=== PATIENT | male | born 1950 | race Caucasian/White ===

== ENCOUNTER 2021-10-13 17:26 | Emergency (ER) | payer MEDICARE, SELFPAY ==
[2021-10-13 17:34] VITALS: BP 151/90; PULSE 92; RESP 20; TEMP 37.1; O2SAT 92; BMI 32.6
--- NOTE | 2021-10-13 18:08 | ED_ITS ---
Documented by User: VIRGINIA Swan 10/13/21 22:18 HPI - COVID General: Chief Complaint: COVID symptoms Stated Complaint: COVID + Chest Pains Time Seen by Provider: 10/13/21 18:08 Triage information: Has fever, cough or shortness of breath . Exposure to COVID + person last 14 days History of Present Illness: 71-year-old male patient comes in today with complaints of increasing shortness of breath over the last 2 days. Patient has been ill for about 2 weeks. Patient was seen 2 days ago at [facility] and was treated with IV medications and then released to home. Patient reports no improvement in symptoms and come into the ER due to worsening condition. Patient is positive for COVID-19. Patient reports his brother about 4 months ago from COVID-19. Patient does have diabetes mellitus and reports poor control of blood sugar since illness. Patient does report some chest discomfort. Patient appears unwell but not toxic. Patient's oxygen saturation decreases with speech. COVID 19 common symptoms: positive dyspnea COVID 19 other sytmptoms: positive chest pain COVID Results: No Data to Display Review of Systems General: Reports: 10 or more systems reviewed and unremarkable except in HPI and below Card: Reports: chest pain Resp: Reports: dyspnea Physical Exam Const: COMMON NORMALS: alert HENMT: COMMON NORMALS: normocephalic and TM's normal bilaterally HEAD & SCALP: normocephalic TYMPANIC MEMBRANE: TM's normal bilaterally MOUTH: moist mucous membranes abnormal (Thrush) THROAT: posterior oropharynx normal Resp: EFFORT & INSPECTION: Yes tachypneic AUSCULTATION: diminished lung sounds Cardio: COMMON NORMALS: regular rate and regular rhythm RATE: regular rate RHYTHM: regular rhythm GI: COMMON NORMALS: Soft to palpation and non-tender PALPATION: Yes Soft to palpation Extremity: COMMON NORMALS: normal to inspection and no pedal edema Neuro: SENSORIUM/ORIENTATION: Yes alert Psych: COMMON NORMALS: cooperative Skin: COMMON NORMALS: no rashes or lesions noted GENERAL SKIN EXAM: no rashes or lesions noted Course ED course: 2144, reviewed records from [facility], patient had been infused with a dose of monoclonal antibody, sotromivab , while in the emergency room. Vital Signs: Vital signs: Vital Signs Temperature 98.8 F 10/13/21 17:34 Pulse Rate 73 10/13/21 21:50 Respiratory Rate 18 10/13/21 21:50 Blood Pressure 180/90 10/13/21 21:50 Pulse Oximetry 96 10/13/21 21:50 [facility] - COVID Medical Decision Making 71-year-old male patient comes in today with complaints of shortness of breath and Covid pneumonia. Patient reports worsening shortness of breath over the last 2 to 3 days. Patient was seen 3 days ago at [facility] and was treated with monoclonal antibodies and IV fluids. Patient came in today due to persistent symptoms. On exam patient has decreased breath sounds. Skin is warm and dry. Oral mucosa is has a white film to it suggestive of thrush. Differential diagnosis includes respiratory failure, hypoxia, viral pneumonia, PE. CBC and CMP were notable for a creatinine of 1.3, glucose of 213, and white blood cell count 11.3. Patient was placed on oxygen due to hypoxia of room pulse oxygen saturation ranging between 86 and 92%. Oxygen saturation dropped with activity. Chest x-ray noted bilateral atypical pneumonia. D-dimer was positive at 1.7. CTA of the chest did not indicate any pulmonary embolism. Patient felt better with oxygen and wished to go home. We have made arrangement for home oxygen therapy. Patient was also written a prescription for nystatin swish and swallow for thrush. Patient was also given a inhaler to use 2 puffs every 4 hours as needed for shortness of breath. Lab Data : 10/13/21 19:06 10/13/21 19:06 Radiology Impressions Chest X-Ray 10/13/21 18:09 IMPRESSION: Peripheral airspace opacities predominantly right lung consistent with atypical pneumonia such as COVID-19 infection. Chest CTA 10/13/21 20:06 IMPRESSION: 1. Negative for pulmonary embolism. 2. Patchy peripheral airspace disease in both lungs. 3. Commonly reported imaging features of COVID-19 pneumonia are present. Other processes such as influenza pneumonia and organizing pneumonia, as can be seen with drug toxicity and connective tissue disease, can cause a similar imaging pattern. (Reference: Felipe) REFERENCES: Felipe Elam et al., Radiological Society of [place] Expert Consensus Statement on Reporting Chest CT Findings Related to COVID-19. Endorsed by the Society of Thoracic Radiology, the [place] [employer], and RSNA. Published November 03, 2019. Laboratory Results WBC 11.3 10^3/uL (4.0-10.0) H 10/13/21 19:06 RBC 5.59 10^6/uL (4.1-5.3) H 10/13/21 19:06 Hgb 15.2 g/dL (11.7-16.6) 10/13/21 19:06 Hct 48.0 % (42.0-52.0) 10/13/21 19:06 MCV 85.9 fl (80-94) 10/13/21 19:06 MCH 27.2 pg (28.0-34.0) L 10/13/21 19:06 MCHC 31.7 g/dL (30.0-36.0) 10/13/21 19:06 RDW 14.2 % (12.1-15.1) 10/13/21 19:06 Plt Count 279 10^3/cmm (130-400) 10/13/21 19:06 MPV 9.8 fL (7.4-10.4) 10/13/21 19:06 Neut % (Auto) 76.7 % 10/13/21 19:06 Lymph % (Auto) 13.9 % 10/13/21 19:06 [place] % (Auto) 8.2 % 10/13/21 19:06 Eos % (Auto) 0.5 % 10/13/21 19:06 Baso % (Auto) 0.2 % 10/13/21 19:06 Neut # (Auto) 8.63 10^3/uL (1.8-7.7) H 10/13/21 19:06 Lymph # (Auto) 1.6 10^3/uL (0.8-4.8) 10/13/21 19:06 [place] # (Auto) 0.9 10^3/uL (0.2-0.9) 10/13/21 19:06 Eos # (Auto) 0.1 10^3/uL (0.0-0.8) 10/13/21 19:06 Baso # (Auto) 0.0 10^3/uL (0.0-0.1) 10/13/21 19:06 Nucleated RBC % (auto) 0 % 10/13/21 19:06 Nucleated RBCs # 0.0 /100WBC 10/13/21 19:06 D-Dimer 1.76 ug/mIFEU (0-0.59) H 10/13/21 19:06 Sodium 138 mmol/L (136-145) 10/13/21 19:06 Potassium 3.8 mmol/L (3.5-5.1) 10/13/21 19:06 Chloride 103 mmol/L (98-107) 10/13/21 19:06 Carbon Dioxide 18 mmol/L (22-29) L 10/13/21 19:06 Anion Gap 20.8 (5-19) H 10/13/21 19:06 BUN 17 mg/dL (8-23) 10/13/21 19:06 Creatinine 1.3 mg/dL (0.7-1.2) H 10/13/21 19:06 GFR Calculation Not Reportable 10/13/21 19:06 Glucose 213 mg/dL (65-115) H 10/13/21 19:06 Calculated Osmolality 294 mOsm/kg (285-295) 10/13/21 19:06 Lactic Acid 1.6 mmol/L (0.5-2.2) 10/13/21 19:06 Calcium 9.4 mg/dL (8.5-10.5) 10/13/21 19:06 Total Bilirubin 0.5 mg/dL (0.15-1.2) 10/13/21 19:06 AST 34 U/L (0-40) 10/13/21 19:06 ALT 25 U/L (0-41) 10/13/21 19:06 Alkaline Phosphatase 108 IU/L (40-130) 10/13/21 19:06 Troponin T Gen 5 ng/L 13 ng/L (0-15) 10/13/21 19:06 Total Protein 7.4 g/dL (6.6-8.7) 10/13/21 19:06 Albumin 3.8 g/dL (3.5-5.2) 10/13/21 19:06 Globulin 3.6 g/dL (1.3-4.6) 10/13/21 19:06 No Data to Display EKG Data EKG 1: EKG interpretation date: 10/13/21 EKG interpretation time: 19:37 Interpretation: EKG shows a sinus rhythm with a regular rate at [address] elevation or ectopy is noted. No prior exam is available for comparison. Discharge Plan Discharge Patient Disposition: Home Clinical Impression: Pneumonia due to 2019 novel coronavirus, Candidiasis of mouth Condition: Stable Prescriptions: New nystatin 100,000 unit/mL suspension 4 ml buccal 5XD 7 Days Qty: 140 0RF Rx Instructions: swish and swallow Discharge Orders: Discharge ED (Routine); Ordered 10/13/21 Ordered By: Martin Angel Other Ambulatory Orders: DME: Oxygen (Order) Location: None Selected Ordered By: Martin Angel Patient Instructions: Viral Pneumonia (ED) Activity Restrictions/Additional Instructions: Use oxygen until he can breathe easily without. Drink plenty of water and fluids. Use nystatin suspension 5 times a day. Make sure to coat the entire mouth with the dose either by swishing or directly applying it. Use albuterol inhaler 2 puffs every 4 hours as needed for shortness of breath, wheezing. Return to the ER for worsening symptoms or chest pain. Follow-up with primary care in 2 to 3 days for recheck. Coding Level of Care Code ED Venetian Blind Mechanic for Chg Fwd Exam Comprehensive Documented by User: Cresencio Morrison DO 10/13/21 23:05 HPI - COVID General: Chief Complaint: COVID symptoms Stated Complaint: COVID + Chest Pains Time Seen by Provider: 10/13/21 18:08 COVID Results: No Data to Display Course Vital Signs: Vital signs: Vital Signs Temperature 98.8 F 10/13/21 17:34 Pulse Rate 73 10/13/21 21:50 Respiratory Rate 18 10/13/21 21:50 Blood Pressure 180/90 10/13/21 21:50 Pulse Oximetry 96 10/13/21 21:50 MDM - COVID Medical Decision Making 71-year-old male patient comes in today with complaints of shortness of breath and Covid pneumonia. Patient reports worsening shortness of breath over the last 2 to 3 days. Patient was seen 3 days ago at [facility] and was treated with monoclonal antibodies and IV fluids. Patient came in today due to persistent symptoms. On exam patient has decreased breath sounds. Skin is warm and dry. Oral mucosa is has a white film to it suggestive of thrush. Differential diagnosis includes respiratory failure, hypoxia, viral pneumonia, PE. CBC and CMP were notable for a creatinine of 1.3, glucose of 213, and white blood cell count 11.3. Patient was placed on oxygen due to hypoxia of room pulse oxygen saturation ranging between 86 and 92%. Oxygen saturation dropped with activity. Chest x-ray noted bilateral atypical pneumonia. D-dimer was positive at 1.7. CTA of the chest did not indicate any pulmonary embolism. Patient felt better with oxygen and wished to go home. We have made arrangement for home oxygen therapy. Patient was also written a prescription for nystatin swish and swallow for thrush. Patient was also given a inhaler to use 2 puffs every 4 hours as needed for shortness of breath. This patient was originally seen by VIRGINIA Brewster.? I agree with his history, evaluation, and treatment. Lab Data : 10/13/21 19:06 10/13/21 19:06 Radiology Impressions Chest X-Ray 10/13/21 18:09 IMPRESSION: Peripheral airspace opacities predominantly right lung consistent with atypical pneumonia such as COVID-19 infection. Chest CTA 10/13/21 20:06 IMPRESSION: 1. Negative for pulmonary embolism. 2. Patchy peripheral airspace disease in both lungs. 3. Commonly reported imaging features of COVID-19 pneumonia are present. Other processes such as influenza pneumonia and organizing pneumonia, as can be seen with drug toxicity and connective tissue disease, can cause a similar imaging pattern. (Reference: Felipe) REFERENCES: Felipe Elam, et al., Radiological Society of [place] Expert Consensus Statement on Reporting Chest CT Findings Related to COVID-19. Endorsed by the Society of Thoracic Radiology, the [place] [employer], and RSNA. Published November 03, 2019. Laboratory Results WBC 11.3 10^3/uL (4.0-10.0) H 10/13/21 19:06 RBC 5.59 10^6/uL (4.1-5.3) H 10/13/21 19:06 Hgb 15.2 g/dL (11.7-16.6) 10/13/21 19:06 Hct 48.0 % (42.0-52.0) 10/13/21 19:06 MCV 85.9 fl (80-94) 10/13/21 19:06 MCH 27.2 pg (28.0-34.0) L 10/13/21 19:06 MCHC 31.7 g/dL (30.0-36.0) 10/13/21 19:06 RDW 14.2 % (12.1-15.1) 10/13/21 19:06 Plt Count 279 10^3/cmm (130-400) 10/13/21 19:06 MPV 9.8 fL (7.4-10.4) 10/13/21 19:06 Neut % (Auto) 76.7 % 10/13/21 19:06 Lymph % (Auto) 13.9 % 10/13/21 19:06 [place] % (Auto) 8.2 % 10/13/21 19:06 Eos % (Auto) 0.5 % 10/13/21 19:06 Baso % (Auto) 0.2 % 10/13/21 19:06 Neut # (Auto) 8.63 10^3/uL (1.8-7.7) H 10/13/21 19:06 Lymph # (Auto) 1.6 10^3/uL (0.8-4.8) 10/13/21 19:06 [place] # (Auto) 0.9 10^3/uL (0.2-0.9) 10/13/21 19:06 Eos # (Auto) 0.1 10^3/uL (0.0-0.8) 10/13/21 19:06 Baso # (Auto) 0.0 10^3/uL (0.0-0.1) 10/13/21 19:06 Nucleated RBC % (auto) 0 % 10/13/21 19:06 Nucleated RBCs # 0.0 /100WBC 10/13/21 19:06 D-Dimer 1.76 ug/mIFEU (0-0.59) H 10/13/21 19:06 Sodium 138 mmol/L (136-145) 10/13/21 19:06 Potassium 3.8 mmol/L (3.5-5.1) 10/13/21 19:06 Chloride 103 mmol/L (98-107) 10/13/21 19:06 Carbon Dioxide 18 mmol/L (22-29) L 10/13/21 19:06 Anion Gap 20.8 (5-19) H 10/13/21 19:06 BUN 17 mg/dL (8-23) 10/13/21 19:06 Creatinine 1.3 mg/dL (0.7-1.2) H 10/13/21 19:06 GFR Calculation Not Reportable 10/13/21 19:06 Glucose 213 mg/dL (65-115) H 10/13/21 19:06 Calculated Osmolality 294 mOsm/kg (285-295) 10/13/21 19:06 Lactic Acid 1.6 mmol/L (0.5-2.2) 10/13/21 19:06 Calcium 9.4 mg/dL (8.5-10.5) 10/13/21 19:06 Total Bilirubin 0.5 mg/dL (0.15-1.2) 10/13/21 19:06 AST 34 U/L (0-40) 10/13/21 19:06 ALT 25 U/L (0-41) 10/13/21 19:06 Alkaline Phosphatase 108 IU/L (40-130) 10/13/21 19:06 Troponin T Gen 5 ng/L 13 ng/L (0-15) 10/13/21 19:06 Total Protein 7.4 g/dL (6.6-8.7) 10/13/21 19:06 Albumin 3.8 g/dL (3.5-5.2) 10/13/21 19:06 Globulin 3.6 g/dL (1.3-4.6) 10/13/21 19:06 No Data to Display Discharge Plan Discharge Patient Disposition: Home Clinical Impression: Pneumonia due to 2019 novel coronavirus, Candidiasis of mouth Condition: Stable Prescriptions: New nystatin 100,000 unit/mL suspension 4 ml buccal 5XD 7 Days Qty: 140 0RF Rx Instructions: swish and swallow Discharge Orders: Discharge ED (Routine); Ordered 10/13/21 Ordered By: Martin Angel Other Ambulatory Orders: DME: Oxygen (Order) Location: None Selected Ordered By: Martin Angel Patient Instructions: Viral Pneumonia (ED) Activity Restrictions/Additional Instructions: Use oxygen until he can breathe easily without. Drink plenty of water and fluids. Use nystatin suspension 5 times a day. Make sure to coat the entire mouth with the dose either by swishing or directly applying it. Use albuterol inhaler 2 puffs every 4 hours as needed for shortness of breath, wheezing. Return to the ER for worsening symptoms or chest pain. Follow-up with primary care in 2 to 3 days for recheck. Coding Level of Care Code ED Venetian Blind Mechanic for Richard Glass Exam Comprehensive
--- NOTE | 2021-10-13 18:09 | ECG_ITS ---
[facility] Test Date: 2021-10-13 Pat Name: Jai Wallace Department: Room: Gender: Male Wellness Program Manager: : 1950 Requested By: Martin León Order Number: [id number] Efraín MD: Michelle Sow M.D. Measurements Intervals [place] Rate: 78 P: 34 KS: 148 QRS: -36 QRSD: 88 T: 43 QT: 367 QTc: 419 Interpretive Statements SINUS RHYTHM LEFT AXIS DEVIATION [QRS AXIS < -30] No previous ECG available for comparison Electronically Signed On 10-14-2021 12:17:59 GEODETIC TECHNICIAN by Michelle Sow M.D. [id number]
--- NOTE | 2021-10-13 18:09 | XRR_ITS ---
PROCEDURE INFORMATION: Exam: XR Chest Exam date and time: 10/13/2021 6:09 PM Age: 71 years old Clinical indication: Shortness of breath; Additional info: Covid pneumonia TECHNIQUE: Imaging protocol: XR of the chest. Views: 1 view. COMPARISON: No relevant prior studies available. FINDINGS: Lungs: Patchy peripheral ground-glass opacities primarily lateral right lung. Lungs are hypoaerated with mildly reduced volume. Pleural spaces: Unremarkable. No pleural effusion. No pneumothorax. Heart/Mediastinum: Unremarkable. No cardiomegaly. Bones/joints: Unremarkable. XR/XR chest 1V portable [id number] IMPRESSION: Peripheral airspace opacities predominantly right lung consistent with atypical pneumonia such as COVID-19 infection.
[2021-10-13 19:32] VITALS: O2SAT 98
[2021-10-13 19:44] LABS: Basophils % 0.2 %; Eosinophils # 0.1 10^3/uL (0.0-0.8); Eosinophils % 0.5 %; Hemoglobin 15.2 g/dL (11.7-16.6); Lymphocytes # 1.6 10^3/uL (0.8-4.8); Lymphocytes % 13.9 %; Mean Corpuscular HGB Conc 31.7 g/dL (30.0-36.0); Mean Corpuscular Hemoglobin 27.2 pg (28.0-34.0); Mean Corpuscular Volume 85.9 fl (80-94); Mean Platelet Volume 9.8 fL (7.4-10.4); Monocytes # 0.9 10^3/uL (0.2-0.9); Monocytes % 8.2 %; Neutrophils # 8.63 10^3/uL (1.8-7.7); Neutrophils % 76.7 %; Nucleated Red Blood Cells % 0 %; Platelet Count 279 10^3/cmm (130-400); Red Blood Count 5.59 10^6/uL (4.1-5.3); Red Cell Distribution Width 14.2 % (12.1-15.1); White Blood Count 11.3 10^3/uL (4.0-10.0)
[2021-10-13 20:01] LABS: D Dimer 1.76 ug/mIFEU (0-0.59)
[2021-10-13 20:05] LABS: Lactic Sepsis W/Reflex 1.6 mmol/L (0.5-2.2)
[2021-10-13 20:06] LABS: Alanine Aminotransferase 25 U/L (0-41); Albumin Level 3.8 g/dL (3.5-5.2); Alkaline Phosphatase 108 IU/L (40-130); Anion Gap 20.8 (5-19); Aspartate Amino Transferase 34 U/L (0-40); Blood Urea Nitrogen 17 mg/dL (8-23); Calcium 9.4 mg/dL (8.5-10.5); Carbon Dioxide 18 mmol/L (22-29); Chloride 103 mmol/L (98-107); Globulin 3.6 g/dL (1.3-4.6); Glucose 213 mg/dL (65-115); Osmolality Calculated 294 mOsm/kg (285-295); Potassium 3.8 mmol/L (3.5-5.1); Sodium 138 mmol/L (136-145); Total Bilirubin 0.5 mg/dL (0.15-1.2); Total Protein 7.4 g/dL (6.6-8.7); Troponin T (5th) Once 13 ng/L (0-15)
--- NOTE | 2021-10-13 20:06 | CTR_ITS ---
PROCEDURE INFORMATION: Exam: CTA Chest With Contrast Exam date and time: 10/13/2021 8:06 PM Age: 71 years old Clinical indication: Cough and fever and shortness of breath; Patient HX: Fever, cough, SOB, covid+; Additional info: Dyspnea, covid+ for 2 weeks TECHNIQUE: Imaging protocol: Computed tomographic angiography of the chest with contrast. 3D rendering (Not supervised by radiologist): MIP and/or 3D reconstructed images were created by the technologist. Radiation optimization: All CT scans at this facility use at least one of these dose optimization techniques: automated exposure control; mA and/or kV adjustment per patient size (includes targeted exams where dose is matched to clinical indication); or iterative reconstruction. Contrast material: VISI 320; Contrast volume: 68 ml; Contrast route: INTRAVENOUS (IV); COMPARISON: CR (CHEST, ) 10/13/2021 6:24 PM RADIATION DOSE METRICS: Total DLP (mGy-cm): 561.2 FINDINGS: Pulmonary arteries: Normal. No pulmonary emboli. Aorta: Unremarkable. No aortic aneurysm. No aortic dissection. Lungs: Patchy peripheral irregular ground-glass attenuation changes throughout the lung parenchyma bilaterally. Negative for endobronchial obstruction. No peripheral honeycombing. No bronchiectasis. Pleural spaces: Unremarkable. No pneumothorax. No pleural effusion. Heart: Unremarkable. No cardiomegaly. No pericardial effusion. Mediastinal space: Calcified granulomas in the mediastinum. Lymph nodes: Negative for mediastinal lymphadenopathy. Bones/joints: Unremarkable. No acute fracture. Soft tissues: Unremarkable. CT/CT angio chest PE protcl [id number] IMPRESSION: 1. Negative for pulmonary embolism. 2. Patchy peripheral airspace disease in both lungs. 3. Commonly reported imaging features of COVID-19 pneumonia are present. Other processes such as influenza pneumonia and organizing pneumonia, as can be seen with drug toxicity and connective tissue disease, can cause a similar imaging pattern. (Reference: Felipe) REFERENCES: Felipe Elam, et al., Radiological Society of [place] Expert Consensus Statement on Reporting Chest CT Findings Related to COVID-19. Endorsed by the Society of Thoracic Radiology, the [place] [employer], and RSNA. Published November 03, 2019.
[2021-10-13] MEDS: LORazepam 0.5 mg Tablet PO (20:51)
[2021-10-13] MEDS: iodixanol 320 mg/mL 100mL Btl IV (21:28)
[2021-10-13 21:50] VITALS: BP 180/90; PULSE 73; RESP 18; O2SAT 96
== END 2021-10-13 23:23 | disposition home or self-care (01) ==
PROVIDERS: Emergency Provider Nurse Practitioner Family
DX: U07.1 COVID-19 (principal); J12.82 Pneumonia due to coronavirus disease 2019; B37.0 Candidal stomatitis
CPT/HCPCS: 71045; 71275; 80053; 83605; 84484; 85025; 85378; 93005; 99284; J3535; Q9967